=== PATIENT | female | born 1990 | race African-American/Black ===

== ENCOUNTER 2016-05-24 21:15 | Emergency (ER) | payer MEDICAID ==
[~2016-05-24] VITALS: Ht 157.5 cm; Wt 63.5 kg
[2016-05-24 21:16] VITALS: BP 113/59; PULSE 97; RESP 16; TEMP 98.5; O2SAT 97
[2016-05-24] MEDS ORDERED: DICL50TA3 PO (22:14)
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
== END 2016-05-24 22:40 | disposition home or self-care (01) ==
LOC: NEPB 21:15
DX: M79.651 Pain in right thigh (principal)
CPT/HCPCS: 99283

== ENCOUNTER 2016-05-28 10:58 | Emergency (ER) | payer MEDICAID ==
[~2016-05-28] VITALS: Ht 160 cm; Wt 64.0 kg
[~2016-05-28 10:58] MED LIST: DICL50TA3 PO
[2016-05-28 10:59] VITALS: BP 115/55; PULSE 106; RESP 20; TEMP 99; O2SAT 94
[2016-05-28 12:00] VITALS: BP 108/63; PULSE 89; RESP 17; O2SAT 97
--- NOTE | 2016-05-28 12:23 | PD ---
HPI Chief Complaint: Related Problem Time Seen by Provider: 12:07 Travel History International Travel<30 days: No Contact w/Intl Traveler<30days: No Traveled to known affect area: No History of Present Illness HPI 25-year-old female complains of pelvic cramping and vaginal bleeding and miscarriage. Patient states that she is about 19-1/2 week of . Patient has not had any care during this . Patient is 4 para 2 AB 1. Patient states that her blood type is B+. Patient states that she had cramping and vaginal bleeding and passing the fetus this morning at home. Patient arrived without the products of conception. Patient denies any headache. Patient denies any chest pain or shortness of breath. Patient states that she has mild cramping lower abdomen pelvic area now. Patient denies any dysuria or frequency. Patient denies any fever chills. The fetus was brought in by EMS and still in the gestational sac with placenta intact. PFSH Past Medical History Medical History: Denies Significant Hx Diminished Hearing: No Genitourinary: Yes (UTI ) Immunizations Current: Yes Tetanus Vaccination: Unknown Influenza Vaccination: No ?: LMP: 01/16/16 : 4 Para: 2 Miscarriage: 1 : 0 Past Surgical History Surgical History: No Previous Surgery Social History Alcohol Use: No Tobacco Use: No Substance Use: No Allergies-Medications (Allergen,Severity, Reaction): Coded Allergies: No Known Allergies (Verified , 03/16/16) Reported Meds & Prescriptions Reported Meds & Active Scripts Active No Active Prescriptions or Reported Medications Review of Systems General / Constitutional: No: Fever Eyes: No: Visual changes HENT: No: Headaches Cardiovascular: No: Chest Pain or Discomfort Respiratory: No: Shortness of Breath Gastrointestinal: Positive: Abdominal Pain Genitourinary: Positive: Pelvic Pain, Vaginal Bleeding, No: Dysuria Musculoskeletal: No: Pain Skin: No Rash Neurologic: No: Weakness Psychiatric: No: Depression Endocrine: No: Polydipsia Hematologic/Lymphatic: No: Easy Bruising Physical Exam Narrative GENERAL: Well-nourished, well-developed patient. SKIN: Warm and dry. HEAD: Normocephalic. EYES: No scleral icterus. No injection or drainage. NECK: Supple, trachea midline. No JVD or lymphadenopathy. CARDIOVASCULAR: Regular rate and rhythm without murmurs, gallops, or rubs. RESPIRATORY: Breath sounds equal bilaterally. No accessory muscle use. GASTROINTESTINAL: Abdomen soft, non-tender, nondistended. MUSCULOSKELETAL: No cyanosis, or edema. BACK: Nontender without obvious deformity. No CVA tenderness. CATEGORY DEVELOPMENT MANAGER exam: Patient has small amount of blood in the vaginal vault. The cervix is a fingertip. Uterus is enlarged with mild tenderness on palpation. No adnexal mass or tenderness. Data Data Last Documented VS Vital Signs Date Time Temp Pulse Resp B/P Pulse Ox O2 Delivery O2 Flow Rate FiO2 05/28/16 13:10 82 16 114/68 98 Room Air 05/28/16 10:59 99.0 Orders Us Pelvis (Ques Preg/Ectopic) (05/28/16 12:16) MDM Medical Decision Making Medical Screen Exam Complete: Yes Emergency Medical Condition: Yes Differential Diagnosis Differential diagnosis including incompleted AB, completed AB. Narrative Course 25-year-old female, 19-1/2 weeks , with vaginal bleeding and passing products of conception. Spoke with ED OB. Advised follow with local physician. Product of conception was sent to pathology. Diagnosis Primary Impression: Complete Patient Instructions: General Instructions Additional Instructions: vitamins with iron. Follow-up with local manager call. Return if fever, excessive bleeding, severe pelvic pain. Med/Other Pt SpecificInfo: No Change to Meds Scripts No Active Prescriptions or Reported Meds Disposition: 01 DISCHARGE HOME Condition: Stable Petros Uribe MD May 28, 2016 12:23
[2016-05-28 12:35] VITALS: BP 181/100; TEMP 98
[2016-05-28 13:10] VITALS: BP 114/68; PULSE 82; RESP 16; O2SAT 98
--- NOTE | 2016-05-28 14:17 | RADRPT ---
EXAM DATE/TIME: 05/28/2016 13:11 [facility] COMPARISON: US PELVIS ([facility] PREG/ECTOPIC), March 04, 2015, 19:52. INDICATIONS : Evaluate for retained products. LAB(S): Beta-hCG: N/A MEDICAL HISTORY : . SURGICAL HISTORY : None. ENCOUNTER: Initial ACUITY: 1 day PAIN SCORE: 3/10 LOCATION: Bilateral pelvis MEASUREMENTS: UTERUS: 16.0 x 6.4 x 8.6 cm ENDOMETRIAL STRIPE: 15 mm RIGHT OVARY: 3.8 x 1.8 x 3.9 cm LEFT OVARY: 3.7 x 1.5 x 2.7 cm FINDINGS: UTERUS: Myometrium is somewhat hypervascular on Doppler interrogation but otherwise homogeneous. There is a 4 .0 x 1.2 x 2.0 cm complex area seen in the lower uterine segment which could represent some retained products of conception. RIGHT OVARY: Ovary contains no mass or significant cystic lesion. LEFT OVARY: Ovary contains no mass or significant cystic lesion. MISCELLANEOUS: No free fluid. CONCLUSION: 1. 4.0 x 1.2 x 2.0 cm complex area in the lower uterine segment. This could represent some retained p roducts of conception associate with the reported recent spontaneous . 2. Otherwise negative Henry Bal MD on May 28, 2016 at 14:12 Board Certified Radiologist. This report was verified electronically.
== END 2016-05-28 14:44 | disposition home or self-care (01) ==
LOC: NEPD 10:58
DX: O03.9 Complete or unspecified spontaneous abortion without complication (principal)
CPT/HCPCS: 76700

== ENCOUNTER 2017-02-06 12:22 | Emergency (ER) | payer OTHER, MEDICAID ==
[~2017-02-06] VITALS: Ht 157.5 cm; Wt 73.0 kg
[2017-02-06 12:40] VITALS: BP 123/78; PULSE 82; RESP 18; TEMP 98.5; O2SAT 99
[2017-02-06] MEDS ORDERED: SODIUM CHLORIDE 0.9% FLUSH 10 ML FLUSH IVF PRN (12:45)
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
[2017-02-06 13:25] LABS: BASOPHIL % 0.5 % (0.0-2.0); EOSINOPHIL # 0.1 TH/MM3 (0-0.4); EOSINOPHIL % 1.1 % (0.0-4.0); HEMATOCRIT 35.4 % (35.0-46.0); HEMO FLAGS DIFF FINAL; LYMPH % 25.4 % (9.0-44.0); LYMPHOCYTE # 1.9 TH/MM3 (1.0-4.8); MEAN CORPUSCULAR HEMOGLOBIN 24.9 PG (27.0-34.0); MEAN CORPUSCULAR HGB CONC 32.7 % (32.0-36.0); MONO % 7.3 % (0.0-8.0); NEUT % 65.7 % (16.0-70.0); PLATELET COUNT 363 TH/MM3 (150-450); RED BLOOD COUNT 4.65 MIL/MM3 (4.00-5.30); RED CELL DISTRIBUTION WIDTH 14.5 % (11.6-17.2); WHITE BLOOD COUNT 7.6 TH/MM3 (4.0-11.0)
[2017-02-06 13:46] LABS: BICARBONATE 24.3 MEQ/L (21.0-32.0); POTASSIUM 3.4 MEQ/L (3.5-5.1)
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
[2017-02-06 14:04] VITALS: O2SAT 99
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
[2017-02-06] MEDS ORDERED: IOHEXOL 350 MG/ML 10 ML VIAL (for RAD DIAG) IVCONTRAST ONE (15:59)
== END 2017-02-06 17:00 | disposition home or self-care (01) ==
LOC: NEPC 12:22
DX: S16.1XXA Strain of muscle, fascia and tendon at neck level, initial encounter (principal); M54.9 Dorsalgia, unspecified; G44.319 Acute post-traumatic headache, not intractable; M54.2 Cervicalgia; R52 Pain, unspecified; V43.52XA Car driver injured in collision with other type car in traffic accident, initial encounter
CPT/HCPCS: 70450; 71010; 71260; 72125; 72128; 72131; 72170; 74177; 80048; 84703; 85025; 99285; Q9967